=== PATIENT | female | born 1980 | race Caucasian/White ===

== ENCOUNTER 2025-09-20 19:07 | Inpatient (IN) | payer BC ==
[~2025-09-20] VITALS: Ht 160 cm; Wt 72.1 kg
--- NOTE | 2025-09-20 19:43 | Physician Documentation ---
History of Present Illness Chief Complaint: Abdominal Pain w/vomiting Stated Complaint: GALL BLADDER PAIN Time Seen by MD: 19:35 HPI This is a 45-year-old female who presents to the emergency department with epigastric and right upper quadrant pain. She reports that she has had pain on and off the last three days. It became severe enough last night that she presented to [facility] Emergency Department early this morning. During that visit, labs were done, and she was given intravenous fluids and morphine. Evidently, an product technician was not available. No imaging was done. She denies chills or fevers, but does endorse episodes of feeling very hot and sweaty. She has had nausea and vomiting, but denies diarrhea. Chronic constipation due to high protein diet. Denies history of abdominal surgeries. Medication Reconciliation Allergies: Coded Allergies: No Known Allergies (Unverified , 09/20/25) Review of Systems ROS As stated above in the HPI, otherwise all systems are reviewed and negative. Physical Exam Vital Signs: Temperature: 98.5, Source: Oral, Heart Rate: 86, Respiratory Rate: 16, BP: 143/83, Pulse Oximetry: 100, Weight: 72.100 Oxygen Flow Rate: 0 Physical Exam General: Alert, no apparent distress. Neck: Full range of motion. Respiratory: Lungs clear, no respiratory distress. Chest: No accessory muscle use. Cardiovascular: Regular rate and rhythm, no murmurs. Gastrointestinal: Soft, tender to palpation of the upper abdomen and right upper quadrant, nondistended. Bowels sounds present. Extremities: Normal range of motion, no deformity. Neurologic: Oriented x4. Psychiatric: Normal mood and affect. Skin: Normal color, warm and dry. No edema, no ecchymosis. Progress Results/Orders Results/Orders Orders - MARY ABERNATHY NP Abdomen Duplex Study Ltd (09/20/25 19:36) Vital Signs 09/20/25 19:08 Temp 98.5 Pulse 86 Resp 16 B/P (MAP) 143/83 Pulse Ox 100 O2 Flow Rate 0 Medical Decision Making Additional information obtaine: other Findings The patient's blood work was unremarkable however the ultrasound showed gallbladder wall thickening at 7.4 mm in the gallbladder was filled with the stones. No obvious CBD dilatation. No mentioned in a pericholecystic fluid. Positive sonographic Horvath's sign. I discussed the case with Dr. Bautista the on- call surgeon who stated that has sound like a fairly straight forward case. I admitted with the patient to Medicine for eventual surgical evaluation and a cholecystectomy. Differential Dx:Considerations: Other Additional Comments ### Abdominal Pain MDM Patient: 45-year-old female History: No chronic health conditions. High-protein diet. Reports chronic constipation. Presents with nausea, vomiting, and epigastric/right upper quadrant (RUQ) abdominal pain. Differential Diagnosis: - Gallbladder disease (cholelithiasis/cholecystitis): RUQ pain, nausea, and vomiting are classic for biliary colic or acute cholecystitis. Risk factors include female sex and dietary patterns. Chronic constipation and high-protein intake are not classic risk factors but may contribute to altered GI motility. Initial imaging with abdominal ultrasound is recommended for suspected gallbladd er pathology.[1][2] - Peptic ulcer disease (PUD): Epigastric pain, nausea, and vomiting are common. Consider H. pylori and NSAID use as risk factors. Evaluate for complications (e.g., perforation) if severe pain or peritoneal signs present.[3][4] - Functional dyspepsia: Characterized by epigastric pain, postprandial fullness, and nausea. Dietary factors, including high-protein diets and irregular eating habits, may exacerbate symptoms.[5] - Acute pancreatitis: Presents with constant epigastric pain, often radiating to the back, and associated nausea/vomiting. Assess for risk factors (gallstones, alcohol, medications). Diagnosis requires characteristic pain and elevated pancreatic enzymes.[6] - Viral gastroenteritis: Typically presents with acute onset nausea, vomiting, cramping abdominal pain, and diarrhea. Absence of diarrhea and chronicity of constipation make this less likely.[7] - Irritable bowel syndrome/functional constipation: Chronic constipation and abdominal pain may suggest IBS-C, but acute onset of nausea/vomiting is atypical.[8] Medical Decision Making: - History and physical exam focused on pain characteristics, associated symptoms (fever, jaundice, change in bowel habits), and risk factors. - Laboratory evaluation: CBC, liver panel, amylase/lipase, and urinalysis to assess for infection, biliary obstruction, or pancreatitis. - Imaging: Abdominal ultrasound as first-line for RUQ pain and suspected gallbladder disease. Consider CT abdomen/pelvis if ultrasound is inconclusive or if concern for other intra-abdominal pathology.[2] - Management: Supportive care (IV fluids, antiemetics, pain control). Address constipation with dietary/lifestyle modification and consider pharmacologic therapy if indicated. Further management guided by diagnostic findings. Assessment: 45-year-old female with acute nausea, vomiting, and epigastric/RUQ pain. Differential includes gallbladder disease, peptic ulcer disease, functional dyspepsia, and less likely viral gastroenteritis or IBS-C. Initial workup to include labs and abdominal ultrasound. Management to be tailored based on results and clinical evolution. ### References 1. Surgical and Nonsurgical Management of Gallstones. Srinivas S, Brant HG, Aleena IV, Sue LF, Asif VK. [place] [employer]ician. 2014;89(10):795-802. 2. 2023 Clinical Practice Guideline Update by the Infectious Diseases Society of [place] on Complicated Intra-Abdominal Infections: Risk Assessment, Diagnostic Imaging, and Microbiological Evaluation in Adults, Children, and People. Ja RA, Alban AW, Darien MS, et al. Clinical Infectious Diseases : An Official Publication of the Infectious Diseases Society of [place]. 2023;79 (Suppl 3):S81-S87. doi:10.1093/jovany/vzpt217. 3. Diagnosis and Treatment of Peptic Ulcer Disease. Wyatt RT, Mor AM, Nhan-Jo A, Grayesenia IM. The [place] Journal of Medicine. 2019;132(4):447- 456. doi:10.1016/j.amjmed.2018.12.009. 4. Management of Perforated Peptic Ulcer: A Review. Nohemi SA, Alexandru P, Rose PATTI. [place] Surgery. 202;160(4):450-454. doi:10.1001/jamasurg.2024.6724. 5. Food, Dietary Patterns, or Is Eating Behavior to Blame? Analyzing the Nutritional Aspects of Functional Dyspepsia. Keyon C, Akil SA, Valsamidou E, et al. Nutrients. 2022;15(6):1544. doi:10.3390/ro98965279. 6. Acute Pancreatitis: A Review. Tejal CARMICHAEL, Mahsa IVORY, Kendrick MCNALLY. ASHTYN. 2020;325(4):382-390. doi:10.1001/ashtyn.202075914. 7. Viral Gastroenteritis. Corwin TG, Swathi MP, Kiara MN. Lancet (García, Priyanka). 2023;403(28791):862-876. doi:10.1016/K9037-1210(48)69770-6. 8. Diagnosis and Treatment of Irritable Bowel Syndrome: A Review. Kumar Arias. ASHTYN. 2020;325(9):865-877. doi:10.1001/ashtyn.2020.26365. Departure Disposition: 09 ADMITTED INPATIENT Admitted to Inpatient Unit: yes, to hospitalist, to surgeon (Michele) Admission Level of Care: Med/Surg Impression: Primary Impression: Acute cholecystitis Condition: Stable Referrals: NO PRIMARY CARE PROVIDER (PCP) Signature Scribe Signature: x Attestation: The note accurately reflects work and decisions made by me.Mary Lew NP 09/20/25 19:42 MARY ABERNATHY NP Sep 20, 2025 19:43 LIZ GREENE Sep 20, 2025 23:29
[2025-09-20 20:02] LABS: MEAN PLATELET VOLUME 7.9 FL (7.4-10.4); RED CELL DISTRIBUTION WIDTH 12.8 % (11.5-14.5)
[2025-09-20] MEDS: ondansetron/PF 4mg/2ml inj IV ONE (20:07)
[2025-09-20] MEDS: normal saline 1000ml 1,000 ML IV ONE (20:07)
[2025-09-20] MEDS: morphine 4 MG/ML inj SYRINge IV ONE (20:08)
[2025-09-20 20:15] LABS: CREATININE 0.53 MG/DL (0.40-0.90); TOTAL CARBON DIOXIDE 27.3 MMOL/L (24-32); eCRCL 112 ML/MIN; eGFR > 90 ML/MIN
--- NOTE | 2025-09-20 23:34 | RADIOLOGY REPORT ---
INDICATION: abd pain TECHNIQUE: Multiple real-time sonographic images were obtained of the right upper quadrant. COMPARISON: None FINDINGS: The liver demonstrates diffusely increased echotexture without focal mass lesions. The liver measures 12.4 cm. Normal hepatopetal portal venous flow identified. No evidence of pleural effusion or abdominal ascites. There is no intrahepatic or extrahepatic ductal dilatation. The common duct measures 0.5 cm. Multiple mobile gallstones within the gallbladder. The gallbladder wall is thickened, measuring up to 7 mm. Negative sonographic horvath's sign. The right kidney measures 9.4 cm. The right kidney is normal in contour, size, and shape. The echogenicity is normal. There is no hydronephrosis. The pancreas is not well visualized due to overlying bowel gas. IMPRESSION: 1. Cholelithiasis with gallbladder wall thickening. Negative sonographic Horvath's sign. Findings equivocal for but suggestive of acute cholecystitis. 2. Hepatic steatosis.
[2025-09-21] VITALS (24 sets, daily range): BP systolic 102–125; BP diastolic 65–80; PULSE 73–84; RESP 12–16; TEMP 97.1–98.5; O2SAT 97–100
--- NOTE | 2025-09-21 00:19 | HISTORY AND PHYSICAL-Residence ---
History & Physical Providers to CC Resident Creating Document: JUANCARLOS MANDUJANO RES ~ History of Present Illness Primary Medical Doctor: none Reason for Admit\Complaint: Abdominal pain History of Present Illness This is a 45-year-old female with past medical history of depression presents to the ER with complaints of abdominal pain. Patient reports that she has been having on and off abdominal pain for the last 3 days mainly in the epigastric region, radiating to the back, sharp shooting kind of pain, associated with nausea and vomiting. Patient endorses that the pain is present mainly after having meals, relieved by pain medications. Patient had to go to the ER this morning as the pain got worse and was unbearable, rated as 9/10 in intensity this morning. Patient reports that as there was no proper equipment present in the hospital she was sent back home with pain medications. However this time her pain did not subside with pain medications, which made her come to our ER. Patient reports having chills, sweats this morning but does not report having any fevers. Patient denies any other complaints of heartburn, chest pain, palpitations, hematemesis, diarrhea. Patient says that this is the 2nd episode of abdominal pain she is experiencing this year, the 1st one was in early 2024, where she went to [place] and an ultrasound abdomen was done which showed gallbladder stones. Patient was informed about her gallbladder condition and was also suggested to get her gallbladder removed, but as patient did not have any other episodes of pain later on, she did not pay attention to that. Patient reports that she has lost around 40 lb of weight In the last 1-1/2 year by following exercise and high-protein diet. Patient has had 4 pregnancies. Allergies: Coded Allergies: No Known Allergies (Unverified , 09/20/25) Past Medical History Past Medical History Depression Broken heart syndrome diagnosed in 2016 Past Surgical History Surgical History Comment No significant surgical history present ROS ROS Constitutional: Denies: no symptoms reported, Eyes: Denies: no symptoms reported ENT: Denies: no symptoms reported Respiratory: Denies: No symptoms reported Cardiovascular: Denies: No symptoms reported Gastrointestinal: Denies: Mild epigastric pain Genitourinary: Denies: no symptoms reported Neurological: Denies: no symptoms reported Musculoskeletal: Denies: No symptoms reported Endocrine: Denies: no symptoms reported Exam Vitals: Vital Signs Date Time Temp Pulse Resp B/P (MAP) Pulse Ox O2 Delivery O2 Flow Rate FiO2 09/20/25 20:23 83 16 142/86 (104) 99 09/20/25 19:08 98.5 0 General: General: Awake, alert, oriented. Patient not in distress comfortably lying in bed HEENT: Conjunctive are pink, sclerae clear, no icterus, pupil is equal in both sides, reactive to light, no ear discharge, no pharyngeal erythema or an edema. Neck: Supple, no adenopathy, thyromegaly. Trachea is midline. Respiratory: Normal vesicular breath sounds heard, no wheezing Cardiovascular: S1-S2 regular sinus rhythm and regular rate no gallops, no rubs, no murmurs Abdomen: abdomen mildly tender in the epigastric and right upper quadrant regions, Horvath's sign negative, Bowel sounds present on auscultation, on palpation: soft, no guarding, no rigidity. Extremities: lower extremities peripheral pulses well felt, no edema Neurologic: Mental status: alert and conscious, oriented to place, person and time, preserved memory, normal speech. Motor strength and sensation normal Skin: Warm and dry. Diagnostic Data Last Recorded Lab Results: 09/20/25194609/20/251946 Advance Care Planning Advanced Care plannin - 30 Minutes (Full code) Additional Plan Acute abdominal pain Due to underlying cholecystitis/ cholelithiasis Patient is currently hemodynamically stable WBC count not elevated AST ALT, total bilirubin, alkaline phosphatase normal Lipase not increased Ultrasound abdomen shows cholelithiasis with gallbladder wall thickening. No intrahepatic or extrahepatic ductal dilation. Patient on fluids NS 100 cc/hour Patient on pain and antiemetic medications. Surgery has been consulted. Patient will most likely undergo surgery tomorrow. Mild hypokalemia- K- 3.4 Patient on potassium replacement protocol Disposition-Dr. Bautista aware of the patient, she will most likely be taken for surgery tomorrow. Code status: Full code DVT profile: Subcu Heparin Diet: NPO after midnight Juancarlos Mandujano PGY-1 Patient evaluated using HIPPA compliant AV device Agree with resident as discussed above Check troponin Victoria Olvera MD Date of Service: Sep 21, 2025 Billing Provider: VICTORIA OLVERA MD, PREETHI, RES Sep 21, 2025 00:19 VICTORIA OLVERA MD Sep 21, 2025 03:53
[2025-09-21] MEDS ORDERED: magnesium Cl slow-release 64mg tablet PO PRN (00:30)
[2025-09-21] MEDS: normal saline 1000ml 1,000 ML IV SCH (00:30)
[2025-09-21] MEDS ORDERED: ondansetron/PF 4mg/2ml inj IV PRN ×2 (00:30→13:15)
[2025-09-21] MEDS ORDERED: magnesium hydroxide 30ml (MOM) UD suspension PO PRN (00:30)
[2025-09-21] MEDS ORDERED: potassium Cl 40MEQ/1/2NS 520ml 520 ML IV PRN (00:30)
[2025-09-21] MEDS ORDERED: magnesium sulf-water 2g/50mL 50 ML IV PRN (00:30)
[2025-09-21] MEDS ORDERED: potassium Cl 20 mEq SR tablet PO PRN ×2 (00:30)
[2025-09-21] MEDS ORDERED: mag hydrox/Alum hydrox/simeth 30ml oral suspension PO PRN (00:30)
[2025-09-21] MEDS ORDERED: magnesium sulf-water 4G/100mL 100 ML IV PRN (00:30)
[2025-09-21] MEDS ORDERED: ATOM60CA PO (02:22)
[2025-09-21] MEDS ORDERED: BUPR-94 PO ×2 (02:22→07:15)
[2025-09-21] MEDS: K and/or MAG REPLACEMENT MC SCH (06:38)
[2025-09-21] MEDS: heparin, porcine 5000 units/ml vial SQ SCH (06:39)
[2025-09-21] MEDS: docusate sod 100mg capsule PO SCH (06:57)
[2025-09-21 08:06] LABS: URINE HCG NEGATIVE (NEG)
[2025-09-21 08:13] LABS: LEUKOCYTE ESTERASE ,URINE SMALL (Neg); OCCULT BLOOD,URINE NEGATIVE (Neg)
[2025-09-21 08:15] LABS: UA COLLECTION TYPE CLN CATCH MIDSTREAM
[2025-09-21 08:16] LABS: NITRITES, URINE NEGATIVE (Neg)
[2025-09-21 08:33] LABS: MEAN PLATELET VOLUME 8.5 FL (7.4-10.4); RED CELL DISTRIBUTION WIDTH 12.8 % (11.5-14.5)
[2025-09-21 08:33] LABS: MUCUS STRANDS NONE SEEN /LPF (Neg); SQUAMOUS EPITHELIAL CELL,UR MODERATE /LPF (FEW)
[2025-09-21 09:08] LABS: CREATININE 0.51 MG/DL (0.40-0.90); TOTAL CARBON DIOXIDE 20.6 MMOL/L (24-32); eCRCL 116 ML/MIN; eGFR > 90 ML/MIN
--- NOTE | 2025-09-21 09:10 | RADIOLOGY REPORT ---
CHEST RADIOGRAPH Indication: Pre op Technique: Single frontal view of the chest was obtained Comparison: None FINDINGS: Lines and Tubes: None Lungs: No focal consolidation. Pleura: No effusion. No pneumothorax. Cardiomediastinal contours: Unremarkable Bones: No acute osseous abnormality. IMPRESSION: 1. No acute cardiopulmonary disease.
[2025-09-21 09:42] LABS: INR 1.0 INR
[2025-09-21] MEDS ORDERED: morphine 4 MG/ML inj SYRINge IV PRN ×2 (10:03→13:15)
--- NOTE | 2025-09-21 11:00 | ELECTROCARDIOGRAPH REPORT ---
[facility] Test Date: 2025-09-21 Test Time: 10:57:52 Pat Name: ANDI LLAMAS Department: [facility] Patient ID: [facility]-[id number] Room: [place] [address] [address] Gender: F Azure Architect: : 1980 Requested By: LUH AMATO Order Number: [id number] Reading MD: Dr. Prem Moses Measurements Intervals [place] Rate: 76 P: 64 NE: 178 QRS: 34 QRSD: 82 T: 52 QT: 386 QTc: 435 Interpretive Statements Sinus rhythm Electronically Signed On 09-21-2025 19:57:[address] Prem Moses Please click the below link to view image of tracing.
[2025-09-21] MEDS ORDERED: BUPIVAcaine 2.5mg/ml inj 50ml vial (contains preservative) ONE (12:20)
[2025-09-21] MEDS ORDERED: LIDOcaine 1% 30ml preserv. free vial ONE (12:20)
[2025-09-21] MEDS: morphine 4 MG/ML inj SYRINge IV PRN (12:40)
[2025-09-21] MEDS: INDOCYANINE GREEN 25 MG/10 ML VIAL IV ONE (13:08)
[2025-09-21] MEDS ORDERED: hydrALAZINE 20mg/ml inj. IV PRN (13:15)
[2025-09-21] MEDS: ringers solution, lacted 1,000 ML IV SCH (13:15)
[2025-09-21] MEDS ORDERED: labetalol 20mg/4ml (5mg/ml) syringe IV PRN (13:15)
[2025-09-21] MEDS ORDERED: fentaNYL/PF 50MCG/1 ML 2ML syringe IV PRN ×2 (13:15)
[2025-09-21] MEDS ORDERED: HYDROmorphone/PF 0.2 MG/ML SYRINGE IV PRN (13:15)
[2025-09-21] MEDS ORDERED: fentaNYL/PF 50MCG/1 ML 2ML syringe ONE (14:04)
[2025-09-21] MEDS ORDERED: midazolam 1 mg/ML 2ml injection ONE (14:04)
[2025-09-21] MEDS ORDERED: propofol inj 20 ML IV ONE (14:04)
--- NOTE | 2025-09-21 14:21 | CONSULTATION REPORT ---
History of Present Illness Providers to CC CC: ESMER WOOD MD ~ Reason for Admit\Admit Dx: Abdominal pain Refering MD: none History of Present Illness Patient presented to the emergency department at [facility] on Sunday morning with epigastric pain radiating to her back. She was informed that she had symptomatic cholelithiasis. She was treated and discharged home. Symptoms recurred yesterday evening and she presented to our emergency department with intractable epigastric pain radiating to her back. She had bloating and nausea. Nausea was intractable as well. Ultrasound showed cholelithiasis with thickened gallbladder wall. She was admitted with intractable biliary colic and surgical consultation placed. She continues to have epigastric and right upper quadrant abdominal pain. She continues to have nausea. Symptoms have not improved. Laboratory studies reassuring. 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 Health Maintenance Health Maintenance Not applicable Physical Exam Last Vital Signs Recorded: RN Vital Signs have been reviewed: Yes, Temperature: 97.6, Source: Oral, Heart Rate: 78, Respiratory Rate: 16, BP: 122/78, Pulse Oximetry: 98, Weight: 72.100 General Appearance: alert, WD/WN EENT: PERRL/EOMI; No: scleral icterus (R), scleral icterus (L) Neck: normal inspection Respiratory: lungs clear Cardiovascular: regular rate, rhythm Gastrointestinal Softly distended Mild epigastric and right upper quadrant tenderness to palpation No rebound tenderness No tenderness to percussion Horvath's sign positive Rectal: deferred Back: normal inspection, no CVA tenderness Extremities: normal range of motion, non-tender, no edema Neurologic: oriented x4 Psychiatric: normal mood/affect; No: anxiety Skin: normal color Lymphatic: no adenopathy Review of Systems ROS ROS Comments: Reviewed and negative with the exception of those found in the history of present illness Results Diagram Lab Result Diagram: 09/21/25 0524 09/21/25 0524 Assessment/Plan Problems/Diagnosis: (1) Acute calculous cholecystitis Assessment & Plan: The risks, benefits, and alternatives to a robotic assisted, laparoscopic possible open cholecystectomy were discussed with the patient. Risks include, but are not limited to, bleeding, infection, injury to intra- abdominal structures, injury to the biliary tree, postoperative bile leak and retained common bile duct stone. Patient verbalized understanding and wishes to proceed with surgery. We will do so today as soon as possible. ESMER WOOD MD Sep 21, 2025 14:21
[2025-09-21] MEDS ORDERED: dexamethasone sod phosphate 4mg/ml inj. ONE (14:26)
[2025-09-21] MEDS ORDERED: rocuronium 10mg/ml inj IV ONE (14:26)
[2025-09-21] MEDS ORDERED: ondansetron/PF 4mg/2ml inj ONE (14:59)
[2025-09-21] MEDS ORDERED: PCA WASTE DOCUMENTATION 1 MG ML MC SCH (15:10)
[2025-09-21] MEDS ORDERED: HYDROcodone/acetaminophen 5mg/325mg tablet PO PRN (15:10)
[2025-09-21] MEDS ORDERED: HYDROcodone/acetaminophen 10/325mg tab PO PRN (15:10)
--- NOTE | 2025-09-21 15:13 | OPERATIVE REPORT ---
Operative Report Providers to CC CC: DELVIN WOOD MD ~ Date of Procedure: Sep 21, 2025 Pre-Operative Diagnosis: Acute calculous cholecystitis Post-Operative Diagnosis SAME as PRE-Op Procedure Performed Robotic assisted, laparoscopic cholecystectomy Surgeon: Delvin Wood MD FACS Final Cleaner None Anesthesiologist: Augusto Garcia Type of Anesthesia: General Findings: Acute calculous cholecystitis Wound class II Complications None Prosthetics\Implants used: None Estimated Blood Loss: Minimal Specimen Removed: Gallbladder Description of Procedure: Patient was brought to the operating room and identified by the nursing staff and the attending physician. Patient was placed supine and general anesthesia was induced. A supraumbilical, midline incision was made, long enough to accommodate a 12 mm Leija port. Leija technique was used to gain entry into the abdomen. Stay sutures were placed in the Leija port anchored to the fascia. Abdomen was insufflated without incident. Laparoscope was inserted and the abdomen surveyed. Secondary, 8.5 mm robotic trochars were placed in the left upper quadrant and right lateral abdomen. Robotic arm was docked to the patient. Robotic instruments were guided intra- abdominally under laparoscopic visualization. Gallbladder was readily identified. It was not distended, however, there was edema and pericholecystic fluid that was visualized. The gallbladder did not fill with contrast using firefly visualization. There was contrast noted in the common bile duct and proximal small bowel. Fundus of the gallbladder was grasped and retracted over the dome of the liver. Infundibulum was retracted towards the right lower quadrant. Firefly technology was used to obtain a fluorescent cholangiogram and visualize the pertinent anatomy. Cystic duct was clearly visualized. Peritoneum overlying the triangle was incised with hook electrocautery. This allowed for circumferential dissection of the cystic duct and artery. Critical view of safety was obtained. Duct and artery were then clipped with hemo-lock clips and both structures divided. Gallbladder was retracted laterally and dissected out of the gallbladder fossa. There was a moderate amount of pericholecystic fluid. Gallbladder was set aside and fluorescent cholangiogram of the gallbladder fossa was used to confirm no evidence of bile leak. Gallbladder was placed in a laparoscopic retrieval bag. Secondary trochars were removed and the abdomen allowed to deflate. Leija port was removed with the specimen in its retrieval bag. Fascia at the umbilical port site was closed with 0 Vicryl sutures. Skin was closed with 4-0 Monocryl sutures in a subcuticular fashion About 40 cc of local anesthetic was used during the case. Sterile dressings were applied. Patient was awakened and taken to the postanesthesia care unit in stable condition. Counts repoted as correct: Yes DELVIN WOOD MD Sep 21, 2025 15:13
--- NOTE | 2025-09-21 15:23 | PROGRESS NOTE- Residence ---
Progress Note - Resident Providers to CC Resident Creating Document: JASMYN PEÑALOZA, NIKIA ~ Central Line/PICC still needed: N\A Goldstein-Non Protocol Goldstein Indications Met/Not Met: F/C Indications Not Met Antibiotic Timeout Antibiotic Ordered?: Yes MRSA Education MRSA Education Provided to pt: No Subjective Patient examined bedside. Her abdominal pain is better controlled with morphine. Complains of epigastric abdominal pain, 4/5, nonradiating. She has been posted for cholecystectomy today at 4:[address] Bautista. Currently NPO. Objective Vital Signs Date Time Temp Pulse Resp B/P (MAP) Pulse Ox O2 Delivery O2 Flow Rate FiO2 09/21/25 13:40 16 09/21/25 13:00 97.6 78 122/78 (93) 98 09/21/25 10:00 Room Air 09/21/25 07:19 0.0 Result Diagram: 09/21/2552309/21/25523 General: Well alert, well oriented, not confused, not agitated, not in acute distress, well cooperated during the physical. HEENT: Conjunctive are pink, sclerae clear, no icterus, pupil is equal in both sides, reactive to light, no ear discharge, no pharyngeal erythema or an edema. Neck: Supple, no JVD, no lymphadenopathy and thyromegaly. Chest: Equal air entry on both lungs, no added sounds, no wheeze. Cardiovascular: S1-S2 regular sinus rhythm and, regular rate, no gallops, no rubs, no murmurs Abdomen: Mild tenderness in epigastric region with deep palpation. Horvath sign negative, Bowel sounds present on auscultation, soft, , no guarding, no rigidity Extremities: No obvious deformities, no pitting edema bilaterally, capillary refill intact, peripheral pulsations are intact on both sides Central Nervous System: No focal neurological deficits, no motor or sensory weakness in all 4 extremities, could move all 4 extremities, 2+ deep tendon reflexes, negative Babinski. Musculoskeletal: No joint swelling, deformities, inflammations, and no scoliosis and back tenderness Skin: Warm and dry. Coagulation Studies Laboratory Tests Test 09/21/25 08:42 Prothrombin Time 10.6 SECONDS (9.0-12.0) INR International Normalized Ratio 1.0 INR Coagulation Comments Counseling Services Smoking & Tobacco Cessation: N/A Advance Care Planning Advanced Care planning: N/A Plan Plan Assessment: 45-year-old female positive for cholecystectomy in view of recurrent symptomatic cholelithiasis. Recurrent symptomatic cholelithiasis with acute cholecystitis Vitals: Stable CBC, CMP , LFT in normal range Lipase not elevated Ultrasound suggestive of Cholelithiasis with gallbladder wall thickening. Findings equivocal for but suggestive of acute cholecystitis. Continue fluids at 100 mL/hour Zofran 4 mg IV p.r.n. for nausea, pain well controlled with Dysart and morphine One dose of cefazolin IV before surgery. NPO, surgery at 4:00 p.m. Hypokalemia -resolved Code status: Full code DVT prophylaxis: Heparin 5000 subcutaneous q.8h Analgesia/sedation: Morphine/Dysart Line/tube: PIV GI prophylaxis: None Nutrition: NPO PT: Ordered. Prognosis: Guarded Disposition: Cholecystectomy at 4:00 p.m. today. Jasmyn Peñaloza MD PGY1, Internal [facility] Date of Service: Sep 21, 2025 Billing Provider: LUH AMATO MD Common Visit Codes: 03605-[id number] INP/OBS CARE(HIGH) JASMYN PEÑALOZA, RES Sep 21, 2025 15:23 LUH AMATO MD Sep 22, 2025 07:42
[2025-09-21] MEDS: acetaminophen 1,000mg/100ml IV 100 ML IV PRN (15:35)
[2025-09-21] MEDS: HYDROcodone/acetaminophen 5mg/325mg tablet PO PRN (19:01)
[2025-09-21] MEDS: BUPROPION HCL 150MG XL 24 HR 150 MG TAB PO SCH (19:02)
[2025-09-22] MEDS: HYDROcodone/acetaminophen 10/325mg tab PO PRN (00:07)
[2025-09-22 01:19] VITALS: BP 109/68; PULSE 76; RESP 12; TEMP 98.2; O2SAT 98
[2025-09-22 02:29] VITALS: BP 109/68; PULSE 76; RESP 12; TEMP 98.2; O2SAT 98
[2025-09-22 05:03] LABS: MEAN PLATELET VOLUME 7.9 FL (7.4-10.4); RED CELL DISTRIBUTION WIDTH 12.4 % (11.5-14.5)
[2025-09-22 05:19] VITALS: BP 117/68; PULSE 80; RESP 16; TEMP 97.3; O2SAT 97
[2025-09-22 05:22] LABS: CHOL/HDL RATIO 2.9 (0.00-4.99); CREATININE 0.39 MG/DL (0.40-0.90); LDL CHOLESTEROL 88 MG/DL (50-100); TOTAL CARBON DIOXIDE 23.3 MMOL/L (24-32); eCRCL 152 ML/MIN; eGFR > 90 ML/MIN
[2025-09-22 06:00] VITALS: BP 117/68; PULSE 80; RESP 16; TEMP 97.3; O2SAT 97
[2025-09-22 10:00] VITALS: BP 109/70; PULSE 76; RESP 14; TEMP 97.7; O2SAT 99
[2025-09-22] MEDS ORDERED: HYDR-3964 PO (10:30)
--- NOTE | 2025-09-22 10:40 | DISCHARGE SUMMARY ---
Discharge Summary Providers to CC CC: DELVIN WOOD MD ~ Discharge Summary Admission Diagnosis: Acute calculous cholecystitis Hospital Course DATE OF ADMISSION: September 21, 2025 DATE OF DISCHARGE: September 22, 2025 Discharge Diagnosis\Comment: Acute calculous cholecystitis Operations\Procedures: Robotic assisted, laparoscopic cholecystectomy Consultants: Delvin Wood MD [facility] Hospitalist service Complications: None Condition on DC: Stable New Medications: Hydrocodone Bit/Acetaminophen (Hydrocodon-Acetaminophen 5-325) 5 Mg-325 Mg Tablet 1 TAB PO Q4H PRN for MODERATE PAIN 4-6 for 5 Days, #30 TAB Continued Medications: Atomoxetine Hcl (Strattera) 60 Mg Capsule 1 CAP PO QAM for 30 Days, #30 CAP 0 Refills Bupropion Hcl (Wellbutrin Xl) 150 Mg Tab.sr.24h 1 TAB PO BID for 30 Days, #30 TAB 0 Refills Discharge Summary: Patient was admitted with acute calculous cholecystitis. She was taken to the operating room for an uncomplicated robotic assisted laparoscopic cholecystectomy. Intraoperative findings were consistent with the admission diagnosis. On postoperative day 1., in the morning she was tolerating a diet and pain was adequately controlled with oral pain medication. Laboratory studies were stable. She was deemed ready for discharge home. *Problems/Diagnosis: (1) Acute calculous cholecystitis Total Time Spent on D/C: Up to 30 Minutes Counseling Services Smoking & Tobacco Cessation: N/A DELVIN WOOD MD Sep 22, 2025 10:40
--- NOTE | 2025-09-22 16:04 | DISCHARGE SUMMARY-Residence ---
Discharge Summary Providers to CC Resident Creating Document: STACIE PEÑALOZA, RES ~ Discharge Summary Admission Diagnosis: Acute calculous cholecystitis Hospital Course DATE OF ADMISSION: 09/20/2025 DATE OF DISCHARGE: 09/22/2025 Discharge Diagnosis\Comment: Acute cholecystitis Status post robot assisted laparoscopic cholecystectomy on 09/21/[address] Bautista, surgeon Operations\Procedures: robot assisted laparoscopic cholecystectomy on 09/21/[address] Bautista, surgeon Consultants: Dr. Bautista, surgeon Complications: None Condition on DC: Stable New Medications: Hydrocodone Bit/Acetaminophen (Hydrocodon-Acetaminophen 5-325) 5 Mg-325 Mg Tablet 1 TAB PO Q4H PRN for MODERATE PAIN 4-6 for 5 Days, #30 TAB Continued Medications: Atomoxetine Hcl (Strattera) 60 Mg Capsule 1 CAP PO QAM for 30 Days, #30 CAP 0 Refills Bupropion Hcl (Wellbutrin Xl) 150 Mg Tab.sr.24h 1 TAB PO BID for 30 Days, #30 TAB 0 Refills Discharge Summary: History of present illness: This is a 45-year-old female with past medical history of depression presents to the ER with complaints of recurrent abdominal pain. She has been having intermittent abdominal pain since the past 3 days, in epigastric region, radiating to the back, sharp shooting, associated with nausea and vomiting and increases with food intake. Patient denies any other complaints of heartburn, chest pain, palpitations, hematemesis, diarrhea. She has had similar episodes, 2-3 times this year. She was diagnosed with recurrent cholelithiasis and recommended cholecystectomy before. Hospital course: Ultrasound showed evidence for cholelithiasis with acute cholecystitis and a thickened gallbladder. She underwent robot assisted laparoscopic cholecystectomy on [address] Bautista after 1 dose of preprocedure antibiotics. she tolerated the procedure well, no postoperative complications. Her diet was advanced as tolerated. She is symptomatically better and hemodynamically stable and hence being discharged with the following instructions. Vital Signs Date Time Temp Pulse Resp B/P (MAP) Pulse Ox O2 Delivery O2 Flow Rate FiO2 09/22/25 10:43 Room Air 09/22/25 10:00 97.7 76 14 109/70 (83) 99 09/21/25 15:24 6.0 Laboratory Tests Test 09/20/25 19:47 09/21/25 05:24 09/21/25 07:45 09/21/25 08:42 White Blood Count 6.7 X10'3 5.1 X10'3 Red Blood Count 4.00 X10'6 4.08 X10'6 Hemoglobin 12.9 g/dl 13.2 g/dl Hematocrit 37.8 % 38.7 % Mean Corpuscular Volume 94.4 FL 94.9 FL Mean Corpuscular Hemoglobin 32.1 PG 32.5 PG Mean Corpuscular Hemoglobin Concent 34.0 g/dL 34.2 g/dL Red Cell Distribution Width 12.8 % 12.8 % Platelet Count 197 X10'3 161 X10'3 Mean Platelet Volume 7.9 FL 8.5 FL Neutrophils (%) (Auto) 56.1 % 54.8 % Lymphocytes (%) (Auto) 30.3 % 32.2 % Monocytes (%) (Auto) 9.9 % 9.2 % Eosinophils (%) (Auto) 3.0 % 3.1 % Basophils (%) (Auto) 0.7 % 0.7 % Neutrophils # (Auto) 3.8 X10'3 2.8 X10'3 Lymphocytes # (Auto) 2.0 X10'3 1.6 X10'3 Monocytes # (Auto) 0.7 X10'3 0.5 X10'3 Eosinophils # (Auto) 0.2 X10'3 0.2 X10'3 Basophils # (Auto) 0.0 X10'3 0.0 X10'3 CBC Comment Sodium Level 139 MMOL/L 140 MMOL/L Potassium Level 3.4 MMOL/L 3.8 MMOL/L Chloride Level 106 MMOL/L 109 MMOL/L Carbon Dioxide Level 27.3 MMOL/L 20.6 MMOL/L Anion Gap 6 10 Blood Urea Nitrogen 9 MG/DL 8 MG/DL Creatinine 0.53 MG/DL 0.51 MG/DL Estimated GFR/1.73 m2 > 90 ML/MIN > 90 ML/MIN BUN/Creatinine Ratio 17.0 15.7 Glucose Level 102 MG/DL 89 MG/DL Hemoglobin A1c 5.5 % Calcium Level 7.9 MG/DL 7.7 MG/DL Total Bilirubin 0.4 MG/DL 0.5 MG/DL Aspartate Amino Transf (AST/SGOT) 15 U/L 34 U/L Alanine Aminotransferase (ALT/SGPT) 10 U/L 23 U/L Alkaline Phosphatase 88 IU/L 86 IU/L Total Protein 7.0 G/DL 6.8 G/DL Albumin 3.3 G/DL 3.1 G/DL Globulin 3.7 G/DL 3.7 G/DL Albumin/Globulin Ratio 0.9 0.8 Lipase 15 U/L Chemistry Comments Magnesium Level 2.1 MG/DL Troponin I High Sensitivity 4 ng/L Urine Specimen Description Cln catch midstream Urine Color Yellow Urine Clarity Clear Urine pH 6.5 Urine Specific [place] 1.015 Urine Protein Negative mg/dl Urine Glucose (UA) Negative mg/dl Urine Ketones Trace mg/dl Urine Occult Blood Negative Urine Nitrite Negative Urine Bilirubin Negative Urine Urobilinogen 1.0 E.U/dL Urine Leukocyte Esterase Small Urine RBC None seen /HPF Urine WBC 5-10 /HPF Urine Squamous Epithelial Cells Moderate /LPF Urine Transitional Epithelial Cells Few /HPF Urine Bacteria 2+ /HPF Urine Mucus None seen /LPF Urine Culture Indicated Indicated Volume Urine Centrifuged 10 ml Urine HCG, Qualitative Negative Urine Comment Prothrombin Time 10.6 SECONDS INR International Normalized Ratio 1.0 INR Coagulation Comments Test 09/21/25 12:54 09/22/25 04:43 Glucometer 93 mg/dl White Blood Count 6.5 X10'3 Red Blood Count 3.49 X10'6 Hemoglobin 11.4 g/dl Hematocrit 32.7 % Mean Corpuscular Volume 93.6 FL Mean Corpuscular Hemoglobin 32.8 PG Mean Corpuscular Hemoglobin Concent 35.0 g/dL Red Cell Distribution Width 12.4 % Platelet Count 183 X10'3 Mean Platelet Volume 7.9 FL Neutrophils (%) (Auto) 77.9 % Lymphocytes (%) (Auto) 16.0 % Monocytes (%) (Auto) 5.9 % Eosinophils (%) (Auto) 0 % Basophils (%) (Auto) 0.2 % Neutrophils # (Auto) 5.0 X10'3 Lymphocytes # (Auto) 1.0 X10'3 Monocytes # (Auto) 0.4 X10'3 Eosinophils # (Auto) 0.0 X10'3 Basophils # (Auto) 0.0 X10'3 CBC Comment Sodium Level 140 MMOL/L Potassium Level 4.0 MMOL/L Chloride Level 109 MMOL/L Carbon Dioxide Level 23.3 MMOL/L Anion Gap 8 Blood Urea Nitrogen 5 MG/DL Creatinine 0.39 MG/DL Estimated GFR/1.73 m2 > 90 ML/MIN BUN/Creatinine Ratio 12.8 Glucose Level 116 MG/DL Calcium Level 7.2 MG/DL Magnesium Level 1.9 MG/DL Total Bilirubin 0.4 MG/DL Aspartate Amino Transf (AST/SGOT) 25 U/L Alanine Aminotransferase (ALT/SGPT) 24 U/L Alkaline Phosphatase 74 IU/L Total Protein 6.2 G/DL Albumin 2.7 G/DL Globulin 3.5 G/DL Albumin/Globulin Ratio 0.8 Triglycerides Level 61 MG/DL Cholesterol Level 144 MG/DL LDL Cholesterol 88 MG/DL HDL Cholesterol 49 MG/DL Cholesterol/HDL Ratio 2.9 Chemistry Comments Imaging: Abdominal ultrasound: 1. Cholelithiasis with gallbladder wall thickening. Negative sonographic Horvath's sign. Findings equivocal for but suggestive of acute cholecystitis. 2. Hepatic steatosis. Chest x-ray: No acute cardiopulmonary disease. Physical exam on discharge: General: Well alert, well oriented, not confused, not agitated, not in acute distress, well cooperated during the physical. HEENT: Conjunctive are pink, sclerae clear, no icterus, pupil is equal in both sides, reactive to light, no ear discharge, no pharyngeal erythema or an edema. Neck: Supple, no JVD, no lymphadenopathy and thyromegaly. Chest: Equal air entry on both lungs, no added sounds, no wheeze. Cardiovascular: S1-S2 regular sinus rhythm and, regular rate, no gallops, no rubs, no murmurs Abdomen: Surgical site clean dry. Bowel sounds present on auscultation, soft, nontender, no guarding, no rigidity Extremities: No obvious deformities, no pitting edema bilaterally, capillary refill intact, peripheral pulsations are intact on both sides Central Nervous System: No focal neurological deficits, no motor or sensory weakness in all 4 extremities, could move all 4 extremities, 2+ deep tendon reflexes, negative Babinski. Musculoskeletal: No joint swelling, deformities, inflammations, and no scoliosis and back tenderness Skin: Warm and dry. Discharge instructions: Activity as tolerated No lifting more than 15 pounds for 2 weeks Diet as tolerated May remove Band-Aids two days after surgery Leave Steri-Strips in place for 10-14 days May shower after Band-Aids removed Follow-up with Dr. Bautista in 2-3weeks. *Problems/Diagnosis: (1) Acute calculous cholecystitis Status: Acute Total Time Spent on D/C: Up to 30 Minutes Counseling Services Smoking & Tobacco Cessation: N/A Date of Service: Sep 22, 2025 Billing Provider: LUH AMATO MD Common Visit Codes: 01462-VBU/OBS DISCH DAY >30min STACIE PEÑALOZA, NIKIA Sep 22, 2025 15:52 LUH AMATO MD Sep 23, 2025 07:01
== END 2025-09-22 11:38 | disposition home or self-care (01) | DRG 419 ==
LOC: ER 19:08 → ED HOLD 23:40 → ORTHO 4S 09-21 02:30
PROVIDERS: ADMIT Internal Medicine; ATTEND Internal Medicine
PROC: 8E0W4CZ Robotic Assisted Procedure of Trunk Region, Percutaneous Endoscopic Approach (ICD-10-PCS; 2025-09-21)
PROC: 0FT44ZZ Resection of Gallbladder, Percutaneous Endoscopic Approach (ICD-10-PCS; principal; 2025-09-21 14:13)
DX: K80.00 Calculus of gallbladder with acute cholecystitis without obstruction (principal); E87.6 Hypokalemia
CPT/HCPCS: 99285; Z7506; Z7508; 36415; 71045; 76700; 80053; 80061; 81001; 81025; 82948; 83036; 83690; 83735; 84484; 85025; 85610; 87081; 87088; 93005; A4215; A4618; A7000; G0378; J0131; J0690; J1100; J1644; J2003; J2250; J2270; J2405; J2704; J3010; J3490; J7030; J7120